=== PATIENT | female | born 1930 | race Caucasian/White ===

== ENCOUNTER → 2019-04-13 | Outpatient (CLI) | payer MEDICARE, OTHER | LOC: COL.RAD 10:29 | DX: M17.12 Unilateral primary osteoarthritis, left knee (principal) ==

== ENCOUNTER → 2019-05-28 | Outpatient (CLI) | payer MEDICARE | LOC: COL.RAD 08:16 | DX: Z01.812 Encounter for preprocedural laboratory examination (principal); I51.7 Cardiomegaly; K44.9 Diaphragmatic hernia without obstruction or gangrene; R91.1 Solitary pulmonary nodule; K76.9 Liver disease, unspecified; I25.10 Atherosclerotic heart disease of native coronary artery without angina pectoris | CPT/HCPCS: Q9967 ==

== ENCOUNTER → 2019-06-11 | Outpatient (CLI) | payer MEDICARE | LOC: COL.RAD 11:38 | DX: Z01.812 Encounter for preprocedural laboratory examination (principal); C54.1 Malignant neoplasm of endometrium; K76.9 Liver disease, unspecified | CPT/HCPCS: A9585 ==

== ENCOUNTER 2019-07-05 08:00 | Outpatient (RCR) | payer MEDICARE ==
[2019-07-04 08:44] VITALS: BP 145/63; PULSE 88; TEMP 97.9
[~2019-07-05] VITALS: Ht 165.1 cm; Wt 93.0 kg
[2019-07-05 08:24] VITALS: BP 133/82; PULSE 92; TEMP 97.3
[2019-07-05] MEDS ORDERED: COUMADIN 1MG1 MG/TAB PO (08:25)
[2019-07-05] MEDS ORDERED: COUMADIN 5MG5 MG/TAB PO (08:26)
[2019-07-05] MEDS ORDERED: HCTZ 25MG TAB25 MG PO (08:27)
[2019-07-05] MEDS ORDERED: CARDIZEM CD 24240 MG PO (08:27)
[2019-07-05] MEDS ORDERED: SYNTHROID0.1 MG/TAB PO (08:28)
[2019-07-05] MEDS ORDERED: K-DUR 10 MEQ T10 MEQ PO (08:28)
== END 2019-07-05 08:29 | disposition home or self-care (01) ==
LOC: EUO 08:00
DX: Z79.01 Long term (current) use of anticoagulants (principal)
CPT/HCPCS: J1650

== ENCOUNTER 2019-07-12 07:55 | Outpatient (RCR) | payer MEDICARE ==
--- NOTE | 2019-07-11 13:47 | NUR ---
40 mg Lovenox given. Discussed with Wang Thomas regarging patients need for BID dosing and this being her first dose today, he states she can get another dose around 1999/2099 tonight and then start 0800/1999 tomorrow. This was discussed with patient and her daughter and they are agreeable.
--- NOTE | 2019-07-11 20:05 | NUR ---
Patient given 40mg lovenox SQ, which she brought from home. Patient receives 40mg Lovenox BID and will return in the morning for another dose.
[~2019-07-12] VITALS: Ht 165.1 cm; Wt 90.0 kg
[~2019-07-12 07:55] MED LIST: CARDIZEM CD 24240 MG PO; COUMADIN 1MG1 MG/TAB PO; COUMADIN 5MG5 MG/TAB PO; HCTZ 25MG TAB25 MG PO; K-DUR 10 MEQ T10 MEQ PO; SYNTHROID0.1 MG/TAB PO
[2019-07-12 08:00] VITALS: BP 150/54; PULSE 68; TEMP 98
== END 2019-07-17 10:51 | disposition home or self-care (01) ==
LOC: EUO 07:55
DX: Q24.5 Malformation of coronary vessels (principal); Z79.01 Long term (current) use of anticoagulants

== ENCOUNTER → 2020-02-10 | Outpatient (CLI) | payer MEDICARE | LOC: COL.RAD 07:41 | DX: Z01.812 Encounter for preprocedural laboratory examination (principal); C54.1 Malignant neoplasm of endometrium; Z90.710 Acquired absence of both cervix and uterus; M16.0 Bilateral primary osteoarthritis of hip; K44.9 Diaphragmatic hernia without obstruction or gangrene; I51.7 Cardiomegaly | CPT/HCPCS: Q9967 ==